=== PATIENT | male | born 1950 | race Caucasian/White ===

== ENCOUNTER 2016-12-26 21:21 | Emergency (ER) | payer SELFPAY ==
[~2016-12-26] VITALS: Ht 167.6 cm; Wt 62.0 kg
[~2016-12-26 21:21] MED LIST: AMLO2.5T78 PO; ENAL10TA88 PO; ESOM20CA PO; FLO1 PO; PRA40 PO; SIRO1TAB PO; SODI650T PO; URSO300C3 PO; [UNRECOGNIZED DRUG - OTHER]
[2016-12-26 21:32] VITALS: Ht 167.6 cm; Wt 62.0 kg
== END 2016-12-27 00:20 | disposition left against medical advice (07) ==
LOC: E/R 21:21
DX: Z53.21 Procedure and treatment not carried out due to patient leaving prior to being seen by health care provider (principal)

== ENCOUNTER 2016-12-29 06:26 | Emergency (ER) | payer MEDICARE, OTHER ==
[~2016-12-29] VITALS: Wt 62.0 kg
[2016-12-29] MEDS ORDERED: FAMOTIDINE 20 MG INJ IV STA (06:45)
[2016-12-29] MEDS ORDERED: LIDOCAINE/MYLANTA 40 ML BTL PO STA (06:45)
--- NOTE | 2016-12-29 07:08 | ERD ---
ER Documentation Chief Complaint Date/Time DATE: 12/29/16 TIME: 07:05 Chief Complaint epigastric pain, onset 4 days, worse with eating HPI This is a very pleasant 66-year-old male history of end-stage renal disease on dialysis Monday and Monday with completion of course yesterday he also has a history of liver transplant. The patient presents with epigastric abdominal discomfort for approximately 3 days that is postprandial, mild to moderate and constant presently. He denies any chest pain no exertional symptoms no nausea or vomiting. He did have 1-2 episodes of loose stool over the last several days but that has resolved. No fevers or chills. ROS All systems reviewed and are negative except as per history of present illness. Medications Home Meds Reported Medications Sodium Bicarbonate (Antacid) 650 Mg Tablet, 650 MG PO TID 01/18/11 Amlodipine Besylate* (Amlodipine Besylate*) 2.5 Mg Tablet, 5 MG PO DAILY 01/18/11 Sirolimus* (Rapamune*) 1 Mg Tablet, 1 MG PO DAILY 01/18/11 Fludrocortisone Acetate (Florinef Acetate) 0.1 Mg Tablet, 0.1 MG PO BID 01/18/11 [Mag Plus] No Conflict Check 01/18/11 Pravastatin Sodium* (Pravachol*) 40 Mg Tablet, 40 MG PO DAILY 01/18/11 Esomeprazole Mag Trihydrate (Nexium) 20 Mg Capsule.dr, 20 MG PO DAILY 01/18/11 Ursodiol* (Ursodiol*) 300 Mg Capsule, 300 MG PO TID 01/18/11 Enalapril (Enalapril) 10 Mg Tablet, 10 MG PO DAILY 01/18/11 Allergies Allergies: Coded Allergies: No Known Allergy (Verified , 06/24/11) PMhx/Soc History of Surgery: Yes (liver transplant 2008, rt arm fistula) Anesthesia Reaction: No Hx Neurological Disorder: No Hx Respiratory Disorders: No Hx Cardiac Disorders: No Hx Psychiatric Problems: No Hx Miscellaneous Medical Probl: Yes (esrd , dialysis days mon,mon,mon ) Hx Alcohol Use: No Hx Substance Use: No Hx Tobacco Use: No Smoking Status: Never smoker FmHx Family History: No diabetes Physical Exam Vitals Vital Signs Date Time Temp Pulse Resp B/P Pulse Ox O2 Delivery O2 Flow Rate FiO2 12/29/16 06:30 97.3 63 17 185/72 98 Physical Exam General: Well developed, well nourished, no acute distress Head: Normocephalic, atraumatic. Eyes: Pupils equally reactive, EOM intact ENT: Moist mucous membranes Neck: Supple, no lymphadenopathy Respiratory: Lungs clear bilaterally, no distress Cardiovascular: RRR, no murmurs, rubs, or gallops Abdominal: Soft, very mild epigastric tenderness without rebound or guarding, negative Hartman sign, no tenderness to McBurney's point, non-distended, no peritoneal signs : Deferred MSK: No edema, no unilateral swelling, 5/5 strength Neurologic: Alert and oriented, moving all extremities, normal speech, no focal weakness, no cerebellar signs Skin: No rash Psych: Normal mood Result Diagram: 12/29/1654 12/29/1654 Results 24 hrs Laboratory Tests Test 12/29/16 06:54 White Blood Count 5.910^3/ul Red Blood Count 4.0210^6/ul Hemoglobin 12.0g/dl Hematocrit 35.4% Mean Corpuscular Volume 88.1fl Mean Corpuscular Hemoglobin 29.9pg Mean Corpuscular Hemoglobin Concent 33.9g/dl Red Cell Distribution Width 13.2% Platelet Count 20214^3/UL Mean Platelet Volume 9.9fl Neutrophils % 65.0% Lymphocytes % 22.4% Monocytes % 10.6% Eosinophils % 1.4% Basophils % 0.3% Nucleated Red Blood Cells % 0.0/100WBC Neutrophils # 3.810^3/ul Lymphocytes # 1.310^3/ul Monocytes # 0.610^3/ul Eosinophils # 0.110^3/ul Basophils # 0.010^3/ul Nucleated Red Blood Cells # 0.010^3/ul Sodium Level 140mmol/L Potassium Level 4.7mmol/L Chloride Level 92mmol/L Carbon Dioxide Level 31mmol/L Anion Gap 22 Blood Urea Nitrogen 32mg/dl Creatinine 6.76mg/dl Glucose Level 98mg/dl Calcium Level 9.6mg/dl Total Bilirubin 0.1mg/dl Direct Bilirubin 0.00mg/dl Indirect Bilirubin 0.1mg/dl Aspartate Amino Transf (AST/SGOT) 20IU/L Alanine Aminotransferase (ALT/SGPT) 35IU/L Alkaline Phosphatase 85IU/L Total Protein 7.7g/dl Albumin 4.4g/dl Globulin 3.30g/dl Albumin/Globulin Ratio 1.33 Lipase 82U/L Current Medications Medications (Trade) Dose Ordered Sig/Ar Route PRN Reason Start Time Stop Time Status Last Admin Dose Admin Famotidine (Pepcid Iv) 20 mg ONCE STAT IV 12/29/16 06:45 12/29/16 06:47 DC 12/29/16 06:52 Miscellaneous Medication (Gi Cocktail (2)) 40 ml ONCE STAT PO 12/29/16 06:45 12/29/16 06:47 DC 12/29/16 06:52 Procedures/MDM EKG, MONITORS, & DIAGNOSTIC IMAGING: EKG: I reviewed and interpreted a 12-lead EKG. Rhythm: Normal sinus rhythm Ectopy: None Intervals: No abnormalities ST segments: No elevations or depressions T waves: No contiguous inversions CT abdomen and pelvis: IMPRESSION: 1. Postsurgical changes from small bowel resection. There are multiple mild to moderately distended fluid-filled loops of small bowel proximal to the anastomosis with decompression distally. Findings are suggestive of small bowel obstruction. Air and stool is seen distally throughout the colon. 2. Focal fluid noted along the peritoneum and hepatic flexure of the colon, of uncertain significance. 3. Marked bilateral renal cortical atrophy. 4. Senescent changes with aortic atherosclerosis and degenerative changes of the spine. RPTAT: HH LAB INTERPRETATION: No leukocytosis, normal liver function testing MEDICAL DECISION MAKING: The patient presents with epigastric, postprandial abdominal discomfort. I believe his symptoms are likely secondary to dyspepsia or peptic ulcer disease or GERD. The patient has no exertional symptoms and no signs or symptoms concerning for cardiac etiology. I believe a screening EKG would be appropriate however given the patient's poor renal clearance I believe a troponin carries increased risk of false positive. Given my very low pretest probability for cardiac process I do not believe that serial troponins are necessary. The patient however, has a history of liver transplant and is more complicated will benefit from CT imaging of the abdomen and pelvis, LFTs assessment. ER COURSE: GI cocktail provided The patient CT of abdomen and pelvis suggests early bowel obstruction. An NG tube was ordered and a phone call was made to the general surgeon balcony worker Dr. Upton. However, when I informed the patient of the diagnostic imaging findings and recommend inpatient hospitalization and general surgery consultation the patient became concerned given that his surgeon and case is well-known at [facility]. I recommended and offered to call his surgeon Dr. Braswell and transfer the patient for further care and continuity of care. However, the patient states that he does not wish to be transferred at this time he wishes to leave AGAINST MEDICAL ADVICE and transport himself to [facility]. I advised against this and recommended transfer through the formal methods. However, the patient states that he feels most comfortable taking himself to [facility]. He was advised that he would likely have to check into the emergency room. He states understanding. At this point the patient is leaving against my medical advice. He understands that he should not eat and that she should rapidly transported himself to the emergency room. The patient has capacity. I kept the patient and/or family informed of laboratory and diagnostic imaging results throughout the emergency room course. DISPOSITION PLAN: Patient leaving AGAINST MEDICAL ADVICE His verbalized plan is to urgently transfer himself to [facility] ER. Images were placed on the disc and laboratory testing was printed off for his benefit. Departure Diagnosis: Primary Impression: SBO (small bowel obstruction) Additional Impressions: History of liver transplant Epigastric abdominal pain End stage renal disease on dialysis Condition: Stable WENDY LALA MD Dec 29, 2016 07:08
[2016-12-29 07:16] LABS: BASOPHILS % 0.3 % (0.0-2.0); EOSINOPHILS # 0.1 10^3/ul (0.0-0.5); EOSINOPHILS % 1.4 % (0.0-7.0); LYMPHOCYTES # 1.3 10^3/ul (0.8-2.9); MEAN CORPUSCULAR VOLUME 88.1 fl (82.0-101.0); MEAN PLATELET VOLUME 9.9 fl (7.4-10.4); POSITIVE DIFF @See below; WHITE BLOOD COUNT 5.9 10^3/ul (4.8-10.8)
[2016-12-29 07:28] LABS: HEMATOCRIT 35.4 % (42.0-52.0); LYMPHOCYTES % 22.4 % (15.0-51.0); MEAN CORPUSCULAR HEMOGLOBIN 29.9 pg (29.0-33.0); MEAN CORPUSCULAR HGB CONC 33.9 g/dl (32.0-37.0); MONOCYTE # 0.6 10^3/ul (0.3-0.9); MONOCYTES % 10.6 % (0.0-11.0); NEUTROPHIL # 3.8 10^3/ul (1.6-7.5); PLATELET COUNT 141 10^3/UL (140-415); RED BLOOD COUNT 4.02 10^6/ul (4.70-6.10); RED CELL DISTRIBUTION WIDTH 13.2 % (11.5-14.5)
[2016-12-29 07:34] LABS: ALBUMIN 4.4 g/dl (3.3-4.9); ALBUMIN/GLOBULIN RATIO 1.33; BILIRUBIN,INDIRECT 0.1 mg/dl (0-1.1); BILIRUBIN,TOTAL 0.1 mg/dl (0.2-1.3); CALCIUM 9.6 mg/dl (8.4-10.2); CREATININE 6.76 mg/dl (0.61-1.24); POTASSIUM 4.7 mmol/L (3.5-5.1); TOTAL PROTEIN 7.7 g/dl (6.1-8.1)
--- NOTE | 2016-12-29 07:49 | RADRPT ---
PROCEDURE: CT Abdomen and Pelvis without contrast. CLINICAL INDICATION: Abdominal pain. TECHNIQUE: Routine axial tomographic images of the abdomen and pelvis were obtained from the domes the diaphragm to the symphysis pubis. The patient was scanned withoutoral or intravenous contrast. Coronal and sagittal reformatted images were obtained from the axial source images. Images were re viewed on a high-resolution PACS workstation. The total exam CTDI equals 8.76 mGy and the total exam DLP equals 453.25 mGy-cm. One or more of the following dose reduction techniques were used: Autom ated exposure control, adjustment of the mA and / or kV according to patient size, or use of iterati ve reconstruction technique. COMPARISON: None. FINDINGS: The visualized portions of the lung bases demonstrate mild bilateral basilar atelectasis. Evaluat ion of the intra-abdominal solid organs is limited on this noncontrast examination. The liver appea rs normal in size. There is no intra or extrahepatic biliary dilatation. The gallbladder is unrema rkable by CT criteria. The spleen, pancreas, and adrenal glands are unremarkable. The kidneys demonstrate marked bilateral renal cortical atrophy. No renal, ureteral, or bladder neema culi are identified. No perinephric inflammatory changes are identified. The urinary bladder is marissa ssly unremarkable. There are postsurgical changes from small bowel resection. There are multiple mild to moderately di stended fluid-filled loops of small bowel proximal to the anastomosis with decompression of the smal l bowel distal to the anastomosis. The colon is normal in caliber, filled with air and stool. The a ppendix is unremarkable. Diverticula are seen within the sigmoid colon. There is focal fluid along the hepatic flexure. No intraperitoneal free air or abscess is identified. The aorta is normal in c aliber and contains vascular calcifications. No retroperitoneal, mesenteric, or inguinal lymphadeno mercedez is identified. The osseous structures demonstrate mild degenerative changes of the spine. No significant subcutan eous soft tissue abnormalities are seen. IMPRESSION: 1. Postsurgical changes from small bowel resection. There are multiple mild to moderately distende d fluid-filled loops of small bowel proximal to the anastomosis with decompression distally. Findin gs are suggestive of small bowel obstruction. Air and stool is seen distally throughout the colon. 2. Focal fluid noted along the peritoneum and hepatic flexure of the colon, of uncertain significan ce. 3. Marked bilateral renal cortical atrophy. 4. Senescent changes with aortic atherosclerosis and degenerative changes of the spine. RPTAT: HH .Suzanna Pedraza MD, Date Time Electronically viewed and signed by .Suzanna Pedraza MD, on 12/29/2016 07:49 .G/
[2016-12-29 08:25] VITALS: BP 152/69; PULSE 82; RESP 18; TEMP 98.1
== END 2016-12-29 08:28 | disposition left against medical advice (07) ==
LOC: E/R 06:26
DX: K56.69 Other intestinal obstruction (principal); N18.6 End stage renal disease; Z94.4 Liver transplant status; Z99.2 Dependence on renal dialysis
CPT/HCPCS: 36415; 74176; 80053; 83690; 85025; 93005; 96374